=== PATIENT | female | born 1995 | race Caucasian/White ===

== ENCOUNTER 2019-02-23 19:49 | Emergency (ER) | payer BC, MEDICAID ==
[~2019-02-23] VITALS: Ht 162.6 cm; Wt 65.8 kg
[2019-02-23 21:40] VITALS: BP 135/94
== END 2019-02-23 22:06 | disposition home or self-care (01) ==
LOC: ER 19:53
DX: S56.011A Strain of flexor muscle, fascia and tendon of right thumb at forearm level, initial encounter (principal); X58.XXXA Exposure to other specified factors, initial encounter; Y93.89 Activity, other specified; Y92.89 Other specified places as the place of occurrence of the external cause; Y99.8 Other external cause status
CPT/HCPCS: 73120